=== PATIENT | male | born 1950 | race Caucasian/White ===

== ENCOUNTER 2016-11-13 11:43 | Day surgery (SDC) | payer MEDICARE, OTHER ==
[2016-11-12 11:16] LABS: HEMOGLOBIN 17.1 g/dL (13.7-18.0)
[2016-11-12 11:31] LABS: ASPARTATE AMINO TRANSFERASE 28 U/L (15-37); BLOOD UREA NITROGEN 14 mg/dL (7-18)
[~2016-11-13] VITALS: Ht 185.4 cm; Wt 88.6 kg
[~2016-11-13 11:43] MED LIST: ASCO10007 PO; CHOL400T10 PO; FENO135C4 PO; MULT-115 PO; OMEP-110 PO; POTA99TA3 PO; UBID100C24 PO; WARF2TAB7 PO
[2016-11-13] MEDS ORDERED: ASPIRIN 325 MG TABLET EC ONE (12:06)
[2016-11-13] MEDS ORDERED: OMEG1CAP12 PO (12:29)
[2016-11-13] MEDS ORDERED: ACETAMINOPHEN 325 MG TABLET PO PRN (12:30)
[2016-11-13] MEDS ORDERED: BISACODYL 5 MG EC TABLET PO PRN (12:30)
[2016-11-13] MEDS ORDERED: BISACODYL 10 MG SUPP PR PRN (12:30)
[2016-11-13] MEDS ORDERED: ASPIRIN 325 MG TABLET EC PO ONE (12:30)
[2016-11-13] MEDS ORDERED: ONDANSETRON 2MG/ML, 2ML IVPush PRN (12:30)
[2016-11-13] MEDS ORDERED: FENTANYL PF 100 MCG/2ML ONE (12:45)
[2016-11-13] MEDS ORDERED: MIDAZOLAM 1 MG/ML, 5ML ONE (12:45)
[2016-11-13] MEDS ORDERED: HEPARIN 1,000 UNITS/ML, 10ML ONE (12:45)
[2016-11-13] MEDS ORDERED: BIVALIRUDIN 250 MG ONE (12:45)
[2016-11-13] MEDS ORDERED: VERAPAMIL 2.5 MG/ML, 2ML ONE (12:45)
[2016-11-13] MEDS ORDERED: LIDOCAINE 2%, 20ML ONE (12:46)
[2016-11-13] MEDS ORDERED: ZOLPIDEM 5MG TABLET PO PRN (21:00)
== END 2016-11-13 16:59 | disposition home or self-care (01) ==
LOC: CACL 11:43
PROVIDERS: ATTEND Internal Medicine Cardiovascular Disease
DX: R94.39 Abnormal result of other cardiovascular function study (principal); I10 Essential (primary) hypertension; E78.2 Mixed hyperlipidemia; K21.9 Gastro-esophageal reflux disease without esophagitis; E66.3 Overweight; Z68.25 Body mass index [BMI] 25.0-25.9, adult; M19.90 Unspecified osteoarthritis, unspecified site; Z86.718 Personal history of other venous thrombosis and embolism; Z86.711 Personal history of pulmonary embolism; Z85.46 Personal history of malignant neoplasm of prostate; Z79.01 Long term (current) use of anticoagulants
CPT/HCPCS: 36415; 80053; 85025; 85610; 85730; 93458; C1894; J1644; J2250; J3010; J3490; Q9967; J0583

== ENCOUNTER 2019-10-16 21:53 | Emergency (ER) | payer MEDICARE, OTHER ==
[~2019-10-16] VITALS: Ht 185.4 cm; Wt 94.2 kg
[~2019-10-16 21:53] MED LIST changes: +ASCO100019 PO; -ASCO10007 PO; +OMEG1CAP23 PO; -WARF2TAB7 PO; +WARF2TAB99 PO
[2019-10-16 21:55] VITALS: BP 155/73
== END 2019-10-16 22:51 | disposition home or self-care (01) ==
LOC: ED 22:30
DX: S92.524A Nondisplaced fracture of middle phalanx of right lesser toe(s), initial encounter for closed fracture (principal); G89.11 Acute pain due to trauma; M79.671 Pain in right foot; Z85.46 Personal history of malignant neoplasm of prostate; Z86.718 Personal history of other venous thrombosis and embolism; X58.XXXA Exposure to other specified factors, initial encounter; Y93.89 Activity, other specified; Y92.098 Other place in other non-institutional residence as the place of occurrence of the external cause; Y99.8 Other external cause status
CPT/HCPCS: 99283

== ENCOUNTER 2020-04-11 18:36 | Emergency (ER) | payer MEDICARE, OTHER ==
[~2020-04-11] VITALS: Ht 182.9 cm; Wt 93.7 kg
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
--- NOTE | 2020-04-11 18:52 | NUR ---
ERP AT NOW.
--- NOTE | 2020-04-11 19:14 | NUR ---
PT TO CT VIA [facility].
[2020-04-11 19:23] LABS: BASOPHILS # (AUTO) 0.04 x10^3/uL (0-0.1); BASOPHILS % (AUTO) 0 % (0-1); EOSINOPHILS # (AUTO) 0.32 x10^3/uL (0-0.4); EOSINOPHILS % (AUTO) 4 % (1-7); LYMPHOCYTES # (AUTO) 1.45 x10^3/uL (1-3.4); LYMPHOCYTES % (AUTO) 18 % (22-44); MD NO; MEAN CORPUSCULAR HEMOGLOBIN 31.4 pg (27.5-34.5); MEAN CORPUSCULAR HGB CONC 33.6 g/dL (33.2-36.2); MEAN CORPUSCULAR VOLUME 93.5 fL (81-97); MEAN PLATELET VOLUME 8.2 fL (7.4-10.4); MONOCYTES # (AUTO) 0.46 x10^3/uL (0.2-0.8); MONOCYTES % (AUTO) 6 % (2-9); NEUTROPHILS # (AUTO) 5.94 x10^3/uL (1.8-6.8); NEUTROPHILS % (AUTO) 72 % (42-75); PLATELET COUNT 197 x10^3/uL (130-400); RED BLOOD COUNT 4.74 x10^6/uL (4.38-5.82); RED CELL DISTRIBUTION WIDTH 13.3 % (9.4-14.8)
[2020-04-11 19:34] LABS: ALANINE AMINOTRANSFERASE 47 U/L (12-78); ALBUMIN 3.9 g/dL (3.4-5.0); ANION GAP 7 mmol/L (5-15); CHLORIDE 109 mmol/L (98-107)
[2020-04-11 19:39] LABS: ALKALINE PHOSPHATASE 47 U/L (45-117); BILIRUBIN,TOTAL 0.4 mg/dL (0.2-1.0); CREATININE 1.18 mg/dL (0.7-1.3); TOTAL PROTEIN 6.7 g/dL (6.4-8.2); TROPONIN I < 0.015 ng/mL (0.000-0.045)
[2020-04-11 20:12] VITALS: BP 149/67
--- NOTE | 2020-04-11 20:12 | NUR ---
PT AMBULATED IN HALLWAY WITHOUT DIFFICULTY. PT STATES HE FEELS A LITTLE WEAK & TIRED, BUT OTHERWISE OKAY. CHART UP FOR RECHECK.
--- NOTE | 2020-04-11 20:18 | NUR ---
ERP AT FOR RECHECK.
--- NOTE | 2020-04-11 20:40 | NUR ---
D/C INSTRUCTIONS & F/U APPT RV'WD WITH PT, HE VERBALIZES UNDERSTANDING. INSTRUCTED TO RETURN TO ED FOR ANY CONCERNING SYMPTOMS. PT AMBULATED OUT OF ED WITH WITHOUT DIFFICULTY.
== END 2020-04-11 20:49 | disposition home or self-care (01) ==
LOC: ED 18:41
DX: R55 Syncope and collapse (principal); R42 Dizziness and giddiness; R11.0 Nausea; R51 Headache; I44.0 Atrioventricular block, first degree; I10 Essential (primary) hypertension; I48.91 Unspecified atrial fibrillation; E78.5 Hyperlipidemia, unspecified; K21.9 Gastro-esophageal reflux disease without esophagitis; Z87.891 Personal history of nicotine dependence; Z86.718 Personal history of other venous thrombosis and embolism
CPT/HCPCS: 36415; 70450; 71045; 80053; 83735; 84484; 85025; 93005; 99285